=== PATIENT | female | born 1975 | race Caucasian/White ===

== ENCOUNTER 2018-08-12 10:17 | Outpatient (CLI) | payer OTHER ==
[~2018-08-12 10:17] MED LIST: COLACE100 MG PO; TYLENOL-CODEINE1 TAB PO
== END 2018-08-12 10:37 | disposition home or self-care (01) ==
LOC: LAB 10:17
DX: Z01.818 Encounter for other preprocedural examination (principal)

== ENCOUNTER 2018-09-09 11:21 | Inpatient (IN) | payer OTHER ==
[~2018-09-09] VITALS: Ht 165.1 cm; Wt 59.0 kg
== END 2018-09-11 11:28 | disposition home or self-care (01) | DRG 621 ==
LOC: O/R 09-10 06:15 → SURG 09-10 10:58 → SURH 09-10 17:28 → SURG 09-10 17:57
PROVIDERS: ADMIT Specialist
PROC: 0H0V07Z Alteration of Bilateral Breast with Autologous Tissue Substitute, Open Approach (ICD-10-PCS; 2018-09-10)
PROC: 0J080ZZ Alteration of Abdomen Subcutaneous Tissue and Fascia, Open Approach (ICD-10-PCS; principal; 2018-09-10 07:00)
DX: E65 Localized adiposity (principal); N64.82 Hypoplasia of breast; N62 Hypertrophy of breast

== ENCOUNTER → 2019-06-11 07:38 | Outpatient (CLI) | payer OTHER | END | disposition home or self-care (01) | LOC: LAB 07:38 | DX: R79.0 Abnormal level of blood mineral (principal); R63.4 Abnormal weight loss; K73.9 Chronic hepatitis, unspecified; J34.89 Other specified disorders of nose and nasal sinuses; Z32.00 Encounter for pregnancy test, result unknown; D52.8 Other folate deficiency anemias; E78.00 Pure hypercholesterolemia, unspecified; R94.31 Abnormal electrocardiogram [ECG] [EKG]; R05 Cough; J15.0 Pneumonia due to Klebsiella pneumoniae ==